=== PATIENT | male | born 1955 | race Caucasian/White ===

== ENCOUNTER 2017-06-12 07:10 | Day surgery (SDC) | payer MEDICARE, OTHER ==
[~2017-06-12] VITALS: Ht 177.8 cm; Wt 113.4 kg
--- NOTE | ~2017-06-12 | OP ---
PATIENT NAME: DORITA DOWNING MEDICAL RECORD: [id number] LOCATION:[facility] ADMISSION DATE: SURGEON: YENY TAMEZ DPM DATE OF OPERATION: 06/12/2017 PREOPERATIVE DIAGNOSIS: Osteoarthritis, left first met cuneiform joint. POSTOPERATIVE DIAGNOSES: Osteoarthritis, left first met cuneiform joint. PROCEDURE: First met cuneiform joint fusion, left foot. ANESTHESIA: Local with IV sedation utilizing lidocaine and Marcaine plain, approximately 15 cc total. HEMOSTASIS: Left thigh tourniquet at 350 mmHg. PREOPERATIVE DETAILS: The patient was taken to the OR and placed on the operating table in a supine position. This was followed by induction of general anesthesia and infiltration of local anesthetic. The left extremity was then prepped and draped in the usual aseptic technique followed by exsanguination and inflation of tourniquet to 350 mmHg on the thigh. A 4-cm linear incision was made over the dorsal aspect of the left foot overlying the first met cuneiform joint. The incision was carried down through subcutaneous tissue being sure to avoid all vital structures. Dissection carried down to the periosteum where a linear periosteal incision was made and the joint was delivered. A sagittal saw was used to resect the cartilaginous joint. The joint was removed and resected. The joint was then prepped for plate fixation utilizing a 5-hole plate with 1 screw going through the plate for compression. Fixation was achieved. C-arm was used to verify good placement of the fixation as well as alignment of the first ray. The wound was flushed. The deep tissue was repaired with 2-0 Vicryl, the subcutaneous tissue with 4-0 Rapide and the skin was closed with 4-0 Rapide in a subcuticular technique. Adaptic, 4 x 4 and Conform were used to dress the wound followed by application of a modified Brown compression dressing. Tourniquet was deflated. POSTOPERATIVE DETAILS: The patient tolerated the procedure well and left the OR with vital signs stable and vascular status at preop levels. The patient transported to recovery per anesthesia in stable condition. TRANSINT:[id number] Voice Confirmation ID: [id number] DOCUMENT ID: [id number] YENY TAMEZ DPM CC: [id number] DICTATION DATE: 06/12/17 1136 HOME BASED ASSISTANT: 06/12/17 1646 [facility] 06/12/17 [facility] [address] [facility] [address]
[~2017-06-12 07:10] MED LIST: AMBIEN10 MG PO; COZAAR100 MG PO; GLUCOPHAGE500 MG PO; HYDROCHLOROTHIA25 MG PO; NORVASC10 MG PO; OMEPRAZOLE20 M1 PO; SINGULAIR10 MG PO; SYNTHROID75 MCG PO; TESTOSTERON200 MG/ML IM; ZOCOR40 MG PO; ZYRTEC10 MG PO
[2017-06-12 08:37] VITALS: BP 119/77; Ht 177.8 cm; Wt 113.4 kg
--- NOTE | 2017-06-12 13:40 | NUR ---
DISCHARGE INSTRUCTIONS REVIEWED WITH PATIENT AND . VERBALIZED UNDERSTANDING. DC'D VIA WC WITH AND STAFF
== END 2017-06-12 13:40 | disposition home or self-care (01) ==
LOC: D.OPS 07:10 → D.PAN 08:45 → D.OPS 13:40
DX: M19.072 Primary osteoarthritis, left ankle and foot (principal); I10 Essential (primary) hypertension; E11.9 Type 2 diabetes mellitus without complications; E03.9 Hypothyroidism, unspecified; K21.9 Gastro-esophageal reflux disease without esophagitis; G47.30 Sleep apnea, unspecified; E66.9 Obesity, unspecified; Z68.35 Body mass index [BMI] 35.0-35.9, adult; Z01.812 Encounter for preprocedural laboratory examination